=== PATIENT | female | born 1995 | race Two or more races ===

== ENCOUNTER 2018-08-28 22:37 | Emergency (ER) | payer OTHER ==
[~2018-08-28] VITALS: Ht 154.9 cm; Wt 55.8 kg
== END 2018-08-28 23:36 | disposition home or self-care (01) ==
LOC: ER 22:37
DX: R51 Headache (principal)

== ENCOUNTER → 2018-12-10 | Outpatient (CLI) | payer OTHER | END | disposition home or self-care (01) | LOC: OBS/DEL 05:22 | DX: O26.893 Other specified pregnancy related conditions, third trimester (principal); R10.2 Pelvic and perineal pain; Z34.03 Encounter for supervision of normal first pregnancy, third trimester ==

== ENCOUNTER 2019-01-13 13:45 | Inpatient (IN) | payer OTHER ==
[~2019-01-13] VITALS: Ht 154.9 cm; Wt 68.0 kg
[2019-01-24] MEDS ORDERED: PRENATAL CAPLE1 EAC1 PO (08:47)
== END 2019-01-27 14:46 | disposition home or self-care (01) | DRG 807 ==
LOC: LDR 01-24 08:09 → OB/GYN 01-24 08:09
PROVIDERS: ADMIT Obstetrics & Gynecology
PROC: 4A1HXCZ Monitoring of Products of Conception, Cardiac Rate, External Approach (ICD-10-PCS; 2019-01-24)
PROC: 10E0XZZ Delivery of Products of Conception, External Approach (ICD-10-PCS; principal; 2019-01-25)
PROC: 0HQ9XZZ Repair Perineum Skin, External Approach (ICD-10-PCS; 2019-01-25)
PROC: 0UQGXZZ Repair Vagina, External Approach (ICD-10-PCS; 2019-01-25)
PROC: 3E033VJ Introduction of Other Hormone into Peripheral Vein, Percutaneous Approach (ICD-10-PCS; 2019-01-25)
DX: O70.0 First degree perineal laceration during delivery (principal); Z37.0 Single live birth; Z3A.39 39 weeks gestation of pregnancy

== ENCOUNTER 2019-01-23 11:30 | Outpatient (CLI) | payer OTHER ==
[~2019-01-23] VITALS: Ht 152.4 cm; Wt 68.0 kg
[2019-01-24] MEDS ORDERED: PRENATAL CAPLE1 EAC1 PO (08:47)
== END 2019-01-23 14:12 | disposition home or self-care (01) ==
LOC: OBS/DEL 11:30
DX: O47.1 False labor at or after 37 completed weeks of gestation (principal); Z34.03 Encounter for supervision of normal first pregnancy, third trimester

== ENCOUNTER 2022-10-28 11:22 | Outpatient (CLI) | payer OTHER ==
[~2022-10-28 11:22] MED LIST: PRENATAL CAPLE1 EAC1 PO
== END 2022-10-28 13:18 | disposition home or self-care (01) ==
LOC: PRENATAL 11:22
PROVIDERS: ATTEND Obstetrics & Gynecology Maternal & Fetal Medicine
DX: O36.80X0 Pregnancy with inconclusive fetal viability, not applicable or unspecified (principal); Z3A.13 13 weeks gestation of pregnancy

== ENCOUNTER 2022-12-17 12:55 | Outpatient (CLI) | payer OTHER | END 2022-12-17 14:25 | disposition home or self-care (01) | LOC: PRENATAL 12:55 | PROVIDERS: ATTEND Obstetrics & Gynecology Maternal & Fetal Medicine | DX: O35.9XX0 Maternal care for (suspected) fetal abnormality and damage, unspecified, not applicable or unspecified (principal); Z3A.20 20 weeks gestation of pregnancy ==

== ENCOUNTER 2023-03-10 13:31 | Outpatient (CLI) | payer OTHER | END 2023-03-10 14:55 | disposition home or self-care (01) | LOC: PRENATAL 13:31 | PROVIDERS: ATTEND Obstetrics & Gynecology Maternal & Fetal Medicine | DX: O26.849 Uterine size-date discrepancy, unspecified trimester (principal); O36.8199 Decreased fetal movements, unspecified trimester, other fetus; O99.891 Other specified diseases and conditions complicating pregnancy; Z3A.32 32 weeks gestation of pregnancy ==

== ENCOUNTER 2023-04-15 14:15 | Inpatient (IN) | payer OTHER ==
[~2023-04-15] VITALS: Ht 157.5 cm; Wt 68.0 kg
[2023-04-15 16:08] LABS: HEMATOCRIT 30.8 % (36.0-45.00); HEMOGLOBIN 10.1 g/dL (12.0-15.00); MEAN CELL VOLUME 80.5 fL (80.00-100.00); MEAN CORPUSCULAR HEMOGLOBIN 26.3 pg (27.00-32.0); MEAN CORPUSCULAR HGB CONC 32.7 g/dl (32.0-36.0); PLATELET COUNT 204 K/uL (150-450); RED BLOOD COUNT 3.82 M/uL (4.00-6.00)
[2023-04-15 16:15] LABS: URINE APPEARANCE Clear; URINE BILIRRUBIN Negative (NEGATIVE); URINE BLOOD Negative; URINE COLOR Yellow; URINE GLUCOSE Negative (NEGATIVE); URINE LEUKOCYTE Small; URINE NITRATE Negative; URINE PROTEIN Negative (NEGATIVE)
[2023-04-15 16:17] LABS: URINE BACTERIA 1669.2 uL (0.0-1933); URINE EPITHELIAL CELLS 76.6 uL (0.0-38.8); URINE RBC 3.1 uL (0.0-20.8); URINE WBC 32.6 uL (0.0-23.2)
[2023-04-15 16:26] LABS: INR < 0.93; PARTIAL THROMBOPLASTIN TIME 28.1 SECONDS (22.0-34.0); PROTHROMBIN TIME 9.7 SECONDS (9.0-11.5)
[2023-04-15 16:29] LABS: RED CELL DISTRIBUTION WIDTH 17.3 % (11.5-14.5)
[2023-04-15 16:33] LABS: ALBUMIN 2.9 gm/dL (3.4-5.0); BILIRUBIN TOTAL 0.26 mg/dL (0.3-1.2); CALCIUM 8.9 mg/dL (8.5-10.1); CREATININE SERUM 0.85 mg/dL (0.55-1.02); GFR 79.07; GLOBULINA 3.8 G/DL (2.4-3.5); POTASSIUM 4.07 mEq/L (3.5-5.1); TOTAL PROTEIN 6.7 gm/dL (6.4-8.2)
[2023-04-26 00:13] LABS: URINE APPEARANCE Cloudy; URINE BILIRRUBIN Negative (NEGATIVE); URINE BLOOD NHT; URINE COLOR Yellow; URINE GLUCOSE Negative (NEGATIVE); URINE LEUKOCYTE Trace; URINE NITRATE Negative; URINE PROTEIN Negative (NEGATIVE)
[2023-04-26 00:16] LABS: HEMATOCRIT 32.1 % (36.0-45.00); HEMOGLOBIN 10.6 g/dL (12.0-15.00); MEAN CELL VOLUME 79.5 fL (80.00-100.00); MEAN CORPUSCULAR HEMOGLOBIN 26.3 pg (27.00-32.0); MEAN CORPUSCULAR HGB CONC 33.1 g/dl (32.0-36.0); PLATELET COUNT 217 K/uL (150-450); RED BLOOD COUNT 4.04 M/uL (4.00-6.00); RED CELL DISTRIBUTION WIDTH 17.8 % (11.5-14.5)
[2023-04-26 00:17] LABS: URINE BACTERIA 2319.6 uL (0.0-1933); URINE RBC 3.3 uL (0.0-20.8)
[2023-04-26 00:26] LABS: INR < 0.93; PARTIAL THROMBOPLASTIN TIME 29.1 SECONDS (22.0-34.0); PROTHROMBIN TIME 9.5 SECONDS (9.0-11.5)
[2023-04-26 11:15] LABS: ABG PH 7.364 (7.35-7.45); ABG pCO2 39.8 mmHg (35-45)
[2023-04-26 11:16] LABS: ABG PO2 29.9 mmHg (80-100); BASE EXCESS -2.9 mmol/l; BICARBONATE 22.2 mmol/l (23-25); Tco2 23.4 mmol/l; o2 21 %
[2023-04-26 11:17] LABS: SaO2 53.4 %
[2023-04-27 13:18] LABS: MEAN CELL VOLUME 81.5 fL (80.00-100.00); MEAN CORPUSCULAR HEMOGLOBIN 25.6 pg (27.00-32.0); MEAN CORPUSCULAR HGB CONC 31.3 g/dl (32.0-36.0); PLATELET COUNT 195 K/uL (150-450); RED BLOOD COUNT 3.93 M/uL (4.00-6.00)
== END 2023-04-28 12:51 | disposition home or self-care (01) | DRG 807 ==
LOC: OB/GYN 04-25 22:53 → LDR 04-25 22:53 → OB/GYN 04-26 10:44
PROVIDERS: Specialist; ADMIT Obstetrics & Gynecology; ATTEND Obstetrics & Gynecology
PROC: 10E0XZZ Delivery of Products of Conception, External Approach (ICD-10-PCS; principal; 2023-04-25)
PROC: 4A1HXCZ Monitoring of Products of Conception, Cardiac Rate, External Approach (ICD-10-PCS; 2023-04-25)
DX: O99.824 Streptococcus B carrier state complicating childbirth (principal); Z37.0 Single live birth; Z3A.38 38 weeks gestation of pregnancy; Z20.822 Contact with and (suspected) exposure to COVID-19